=== PATIENT | female | born 1955 | race Caucasian/White ===

== ENCOUNTER → 2019-10-17 10:22 | Outpatient (CLI) | payer OTHER ==
--- NOTE | 2019-10-18 11:14 | EC ---
PATIENT:JAYJAY ARCHULETA DATE OF SERVICE: 10/17/19 SEX: F MEDICAL RECORD: [id number] DATE OF : 53 LOCATION:[facility] AGE OF PATIENT: 64 ADMISSION DATE: 10/17/19 REFERRING PHYSICIAN: INTERPRETING PHYSICIAN: RACHEL ART MD ECHOCARDIOGRAM REPORT ECHO CHARGES 4 ECHO COMPLETE Date: 10/17/19 CLINICAL DIAGNOSIS: CAD/MITRAL REGURG ECHOCARDIOGRAPHIC MEASUREMENTS (adult normal given) AC root (d.<3.7cm) 3.1 cm LV Septum d (<1.2 cm> 1.1 cm Valve Excursion 1.3 cm LV Septum (systole) 1.5 cm Left Atria (s.<4.0cm> 2.5 cm LVPW d(<1.2cm) 1.2 cm RV (d.<2.3cm) 2.6 cm LVPW (sytole) 1.6 cm LV diastole(<5.6CM) 4.5 cm MV E-F(>70mm/sec) cm LV systole 2.8 cm LVOT Diameter 1.9 cm MV exc.(>10mm) 1.1 cm Est.ejection fraction (50-75%) % DOPPLER: LVIT cm/sec A 58.0 cm/sec E 73.0 cm/sec LA cm/sec RVSP 15 mmHg LVOT 98 cm/sec AOP1/2T m/s Asc. Ao 105 cm/sec RVOT 94 cm/sec RA cm/sec PA 105 cm/sec AV Gradient Peak 4.43 mmHg AV Mean 2.29 mmHg AV Area 2.7 cm MV Gradient Peak 3.15 mmHg MV Mean 1.27 mmHg MV Area cm COMMENTS: Brim Presser: 2 KISHA SOLORZANO Computer Support Analyst: 3 Dr. Mares TAPE# PACS Pericardial Effusion N DATE OF SERVICE: Adequate 2D, color flow imaging, spectral Doppler, and M-Mode No LVH. LV internal dimension is normal. Wall motion is normal . EF greater than or equal to 55%. Aortic valve is tricuspid. No evidence of stenosis by Doppler interrogation. Left atrium is normal at 3.0 cm. Mitral valve shows no prolapse. Trace MR. Right-sided chambers are grossly normal. Mild TR. TRANSINT:[id number] Voice Confirmation ID: [id number] DOCUMENT ID: [id number] ECHOCARDIOGRAM REPORT [id number] JAYJAY ARCHULETA GREGORY A MD at 1114 CC: [id number] DICTATION DATE: 10/17/19 1302 FURNITURE ASSEMBLER: 10/18/19 0017 DEP CLI 10/17/19 [id number] [place] [address]
== END | disposition home or self-care (01) ==
LOC: D.HCCECHO 10:22
PROVIDERS: ATTEND Internal Medicine Interventional Cardiology
DX: I25.10 Atherosclerotic heart disease of native coronary artery without angina pectoris (principal)

== ENCOUNTER → 2019-12-04 08:59 | Outpatient (CLI) | payer OTHER | END | disposition home or self-care (01) | LOC: D.US 08:30 | PROVIDERS: ATTEND Internal Medicine Interventional Cardiology | DX: R09.89 Other specified symptoms and signs involving the circulatory and respiratory systems (principal) ==

== ENCOUNTER → 2020-07-17 09:00 | Outpatient (CLI) | payer MEDICARE | END | disposition home or self-care (01) | LOC: D.HCCARDIO 09:00 | PROVIDERS: ATTEND Internal Medicine Cardiovascular Disease | DX: I20.9 Angina pectoris, unspecified (principal) ==

== ENCOUNTER 2020-07-24 06:53 | Day surgery (SDC) | payer MEDICARE ==
[~2020-07-24] VITALS: Ht 157.5 cm; Wt 58.0 kg
--- NOTE | ~2020-07-24 | HEMODYNAMI ---
PATIENT:JAYJAY ARCHULETA MEDICAL RECORD: [id number] : 53 LOCATION:[facility] ADMISSION DATE: 07/24/20 Generatedon:19:06 Patient name: JAYJAY ARCHULETA Patient #: [id number] SSN: : 1955 Date of study: 07/24/2020 Page: Of Hemodynamic Procedure Report Patient Data Patient Demographics Procedure consent was obtained First Name: JAYJAY Gender: Female Last Name: GEREMIAS : 1955 [facility] Initial: JUDIE Age: 65 year(s) Patient #: [id number] Race: Unknown Additional ID: [id number] Contact details [address]: [address] [place] [address] State: [place] City: [place] Zip code: [address] Past Medical History Performed procedures and imaging results Date Procedure Procedure Results Comments Stress testing Positive->Intermediate with SPECT MPI risk Allergies Allergen Reaction Date Comments Reported Other allergy 07/24/2020 AMBIEN, BACTRIM, BENADRYL, CEPHALEXIN, DILAUDID, OXYCODONE Admission Admission Data Admission Date: 07/24/2020 Admission Time: 6:53 Arrival Date: 07/24/2020 Arrival Time: 0:00 Height (in.): 60 BSA: 1.53 (m2) Height (cm.): 152.4 BMI: 24.61 (kg/m2) Weight (lbs.): 126 Weight (kg.): 57.15 Lab Results Lab Result Date: 07/24/2020 Lab Result Time: 0:00 Biochemistry Name Units Result Min Max BUN mg/dl 14 --(--*-)-- 7 18 Creatinine mg/dl 1 --(--*-)-- 0.6 1.3 eGFR ml/min 59 *-(----)-- 90 120 NONAFRICAN CBC Name Units Result Min Max Hematocrit % 37.1 *-(----)-- 42 54 Hemoglobin g/dl 11.9 *-(----)-- 13.5 17.5 Procedure Procedure Types Cath Procedure Diagnostic Procedure [facility] w/Coronaries FFR/IVUS FFR Initial Sedation Charges Moderate Sedation 25-39 minutes PCI Procedure Coronary Stent Coronary Stent Initial Hemochron ACT Test Procedure Description Procedure Date Procedure Date: 07/24/2020 Procedure Start Time: 8:34 Procedure End Time: 9:03 Procedure Staff Name Function Pedro Pablo Horn MD Performing Physician Kirstin Martinez RT Monitor Liliana Martinez RT Scrub Gertrudis Moreno RN Nurse Procedure Data Cath Procedure Fluoroscopy Diagnostic fluoroscopy Total fluoroscopy Time: 4.8 time: 4.8 min min Diagnostic fluoroscopy Total fluoroscopy dose: 366 dose: 366 mGy mGy Contrast Material Contrast Material Type Amount (ml) Isovue 300 109 Entry Location Entry Primary Successful Side Size Upsize Upsize Entry Closure Succes sful Closure Location (Fr) 1 (Fr) 2 (Fr) Remarks Device Remarks Femoral Right 5 Fr 6 Fr Exoseal artery Short Estimated blood loss: 10 ml Diagnostic catheters Device Type Used For End Catheter Placement MULTIPACK JL 4.0 5Fr Procedure catheter MULTIPACK 3DRC 5Fr Procedure catheter MULTIPACK Pigtail 5 Fr Procedure catheter MULTIPACK JL 4.0 5Fr Procedure catheter Procedure Complications No complications Procedure Medications Medication Administration Route Dosage Oxygen etCO2 Nasal cannula 2 l/min Lidocaine 2% added to field 20 Heparin Flush Bag added to field 2 bags (1000units/500ml NS) 0.9% NaCl I.V. 100 ml/hr Versed I.V. 1 mg Fentanyl I.V. 50 mcg Versed I.V. 1 mg Fentanyl I.V. 50 mcg Heparin Bolus I.V. 5000 units Integrilin (Bolus I.V. 5 ml 2mg/ml) Versed I.V. 1 mg Fentanyl I.V. 50 mcg Versed I.V. 1 mg Fentanyl I.V. 50 mcg Plavix P.O. 600 mg Hemodynamics Rest BSA: 1.53 (m2) HGB: 11.9 (g/dl) O2 Consumption: Estimated: 150.63 (ml/min) O2 Co nsumption indexed: Estimated:98.45 (ml/min/m) Heart Rate: 84 (bpm) Pressure Samples Time Site Value (mmHg) Purpose Heart Use Rate(bpm) 8:39 LV 100/10,20 Snapshot 87 8:39 LV 94/13,17 Snapshot 87 Gradients Valve Time Site Site Mean SEP/DFP Peak To Heart Use 1 2 (mmHg) (sec/min) Peak Rate (mmHg) (bpm) Aortic 8:39 LV AO 91 Snapshots Pre Cath Intra NCS Post Cath Vital Signs Time Heart Resp SPO2 etCO2 NIBP Rhythm Pain Sedation Rate (ipm) (%) (mmHg) (mmHg) Status Level (bpm) 8:21:06 83 18 98 0 106/61(90) NSR 0 (11) 10(A) , No pain 8:25:14 82 14 95 0 100/61(78) NSR 0 (11) 10(A) , No pain 8:29:20 82 14 94 15.1 103/60(79) NSR 0 (11) 10(A) , No pain 8:33:25 84 11 96 30.2 107/63(86) NSR 0 (11) 10(A) , No pain 8:37:33 86 14 93 0 109/62(85) NSR 0 (11) 9(A) , No pain 8:41:37 87 12 96 45.2 105/71(94) NSR 0 (11) 9(A) , No pain 8:45:43 89 12 97 46 102/62(81) NSR 0 (11) 10(A) , No pain 8:49:49 88 7 98 37.6 105/59(79) NSR 0 (11) 9(A) , No pain 8:53:54 89 8 97 42.2 106/64(87) NSR 0 (11) 9(A) , No pain 8:58:08 91 9 98 42.2 116/62(96) NSR 0 (11) 10(A) , No pain 9:02:18 89 11 98 38.4 102/66(88) NSR 0 (11) 10(A) , No pain Medications Time Medication Route Dose Verified Delivered Reason Notes Effectiveness by by 8:21:13 Oxygen etCO2 2 Pedro Pablo Gertrudis used for Nasal l/min [facility] composite science teacher cannula 8:32:21 Lidocaine 2% added 20ml Pedro Pablo Chamorro for local to vial [facility] anesthetic field MD VIEIRA 8:32:27 Heparin Flush added 2 Pedro Pablo Pedro Pablo used for Bag to bags [facility] procedure (1000units/500ml field MD VIEIRA NS) 8:32:37 0.9% NaCl I.V. 100 Pedro Pablo Buffie Per physician ml/hr [facility] Marvin Moreno RN, MD 8:32:47 Versed I.V. 1 mg Pedro Pablo Buffie for sedation [facility] Marvin Moreno RN, MD 8:32:53 Fentanyl I.V. 50 Pedro Pablo Buffie for sedation mcg St Marvin Moreno RN, MD 8:35:03 Versed I.V. 1 mg Pedro Pablo Buffie for sedation St Marvin Moreno RN, MD 8:35:06 Fentanyl I.V. 50 Pedro Pablo Buffie for sedation [facility] [place] [facility] Marvin Moreno RN, MD 8:42:35 Heparin Bolus I.V. 5000 Pedro Pablo Buffie for verifi ed units St Marvin Moreno RN anticoagulation with dr MD thomason 8:44:49 Integrilin I.V. 5 ml Pedro Pablo Buffie for Wasted 5 (Bolus 2mg/ml) St Marvin Moreno RN antiplatelet ml of MD therapy vial 8:48:08 Versed I.V. 1 mg Pedro Pablo Buffie for sedation [facility] Marvin Moreno RN, MD 8:48:11 Fentanyl I.V. 50 Pedro Pablo Buffie for sedation [facility] [place] [facility] Marvin Moreno RN, MD 8:55:59 Versed I.V. 1 mg Pedro Pablo Buffie for sedation St Marvin Moreno RN, MD 8:56:03 Fentanyl I.V. 50 Pedro Pablo Buffie for sedation mcg St Marvin Moreno RN, MD 9:03:29 Plavix P.O. 600 Pedro Pablo Fortuneie for mg St Marvin Moreno RN antiplatelet MD therapy Procedure Log Time Note 7:55:18 Informed consent obtained and on chart 7:56:02 Procedure Status Elective Heart Cath (OP). 7:56:07 Plan of Care:Hemodynamics will remain stable., Cardiac rhythm will remain stable., Comfort level will be maintained., Respiratory function will remain adequate., Patient/ family verbilizes understanding of procedure., Procedure tolerated without complication., Recovers from procedure without complications.. 7:56:09 Time tracking: Regular hours (M-F 7:00 - 5:00) 7:56:18 H&P Date Dictated: 07/09/2020 Within 30 days and on chart., H&P Addendum completed by physician on day of procedure. (MUST COMPLETE FOR ALL OUTPATIENTS). 7:56:45 Patient allergic to Other allergyAMBIEN, BACTRIM, BENADRYL, CEPHALEXIN, DILAUDID, OXYCODONE 7:57:35 Patient Height : 60 inches 7:57:39 Patient Weight : 126 lbs 7:57:43 Arrival Date: 07/24/2020 12:00:00 AM 8:03:38 Stress Test: yes; abnormal APICAL 8:09:27 Kirstin Martinez RT(R) sent for patient. Start room use. 8:19:52 Patient received from Pre/Post Procedure Room to CCL 1 Alert and oriented. Tansferred to table in Supine position. 8:19:53 Warm blankets applied, and brenton hugger turned on for patient comfort. 8:19:54 Correct patient and procedure confirmed by team. 8:19:54 ECG and BP/O2 sat monitors applied to patient. 8:19:59 Vital chart was started 8:20:17 Baseline sample Acquired. 8:20:35 Rhythm: sinus rhythm 8:20:36 Full Disclosure recording started 8:20:37 Pre-procedure instructions explained to patient. 8:20:37 Pre-op teaching completed and patient verbalized understanding. 8:20:40 Family unavailable. 8:20:41 Patient NPO since Midnight. 8:20:43 Is the patient allergic to Iodine/contrast media? No. 8:20:43 Is patient on blood thinner?No 8:20:51 Patient diabetic? No. 8:20:53 Previous problem with sedation/anesthesia? No ? 8:20:55 Snore? Yes 8:20:57 Sleep apnea? No 8:20:59 Deviated septum? No 8:20:59 Opens mouth fully? Yes 8:21:01 Sticks out tongue? Yes 8:21:05 Airway obstruction? No ? 8:21:07 Dentures? No ? 8:21:10 Pre procedure: right dorsailis pedis pulse 1+ Palpable, but thready & weak; easily obliterated 8:21:12 Patient pain scale 0/10 ?. 8:21:13 Oxygen 2 l/min etCO2 Nasal cannula was administered by Gertrudis Moreno RN; used for procedure; Verbal order read back and verified. 8:21:16 IV patent on arrival in left hand with 0.9% NaCl at [facility]. 8:22:13 Right groin area was prepped with chlora-prep and draped in sterile fashion 8:22:14 Alarms reviewed by R. N. 8:22:14 Sharps counted by scrub and verified by R.N. 8:22:16 Use device set Femoral Dx 8:22:17 ACIST Syringe (66575) opened to sterile field. 8:22:18 Bag Decanter (2002S) opened to sterile field. 8:22:19 ACIST Hand Control (31486) opened to sterile field. 8:22:19 ACIST Manifold (97974) opened to sterile field. 8:22:20 Tegaderm 4 x 4 (1626W) opened to sterile field. 8:22:21 Medline Cath Pack ([id number]) opened to sterile field. 8:22:22 DIAGNOSTIC Multipack 5Fr catheter set ([id number]) opened to sterile field. 8:22:23 SHEATH 5FR Lyman ([id number]) opened to sterile field. 8:22:23 EMERALD Guide Wire (970-128) opened to sterile field. 8:29:27 Lab Result : BUN 14 mg/dl 8:29:27 Lab Result : eGFR NONAFRICAN 59 ml/min 8:29:27 Lab Result : Creatinine 1 mg/dl 8:29:27 Lab Result : Hemoglobin 11.9 g/dl 8:29:27 Lab Result : Hematocrit 37.1 % 8:29:52 Lab results completed and on chart. 8:30:19 --------ALL STOP TIME OUT------ 8:30:19 Final Timeout: patient, procedure, and site verified with staff and physician. All members of the team are in agreement. 8:30:20 Right groin site verified by team. 8:30:23 Fire Safety Assessment: A--An alcohol-based skin anteseptic being used preoperatively., C--Open oxygen or nitrous oxide is being used., D--An ESU, laser, or fiber-optic light is being used. 8:30:25 Physical assessment completed. ASA score P 2 - A patient with mild systemic disease as per Pedro Pablo Horn MD. 8:30:30 3a) 45-59 Moderately reduced kidney function. 8:30:34 Maximum allowable contrast dose (3.7 X eGFR X 0.75)164 ml. 8:30:37 Sedation plan: IV Moderate Sedation Medication:Versed, Fentanyl 8:32:21 Lidocaine 2% 20ml vial added to field was administered by Pedro Pablo Horn MD; for local anesthetic; Verbal order read back and verified. 8:32:27 Heparin Flush Bag (1000units/500ml NS) 2 bags added to field was administered by Pedro Pablo Horn MD; used for procedure; Verbal order read back and verified. 8:32:37 0.9% NaCl 100 ml/hr I.V. was administered by Gertrudis Moreno RN; Per physician; Verbal order read back and verified. 8:32:47 Versed 1 mg I.V. was administered by Gertrudis Moreno RN; for sedation; Verbal order read back and verified. 8:32:53 Fentanyl 50 mcg I.V. was administered by Gertrudis Moreno RN; for sedation; Verbal order read back and verified. 8:34:07 Procedure started. 8:34:09 Zero performed for pressure channel P1 8:34:15 Local anesthetic to right femoral artery with Lidocaine 2% by Pedro Pablo Horn MD.INITIAL ACCESS ONLY 8:35:03 Versed 1 mg I.V. was administered by Gertrudis Moreno RN; for sedation; Verbal order read back and verified. 8:35:06 Fentanyl 50 mcg I.V. was administered by Gertrudis Moreno RN; for sedation; Verbal order read back and verified. 8:35:11 A 5 Fr sheath was inserted into the Right Femoral artery 8:35:16 A MULTIPACK JL 4.0 5Fr catheter was advanced over the wire and used for Procedure. 8:36:54 LCA angiography performed. 8:36:55 Catheter removed. 8:37:03 A MULTIPACK 3DRC 5Fr catheter was advanced over the wire and used for Procedure. 8:38:07 RCA angiography performed. 8:38:08 Catheter removed. 8:38:26 A MULTIPACK Pigtail 5 Fr catheter was advanced over the wire and used for Procedure. 8:38:32 LV gram done using ROJAS 8:38:35 Injector settings: Ml/sec: 10, Volume: 20, 8:39:31 LV hemodynamics recorded. 8:39:39 EF : 55 % 8:39:41 Catheter removed. 8:39:41 Proceeding to intervention. 8:39:51 SHEATH 6FR Lyman (BDQ519) opened to sterile field. 8:39:56 INFLATOR Merit BasixCompak (QB3103) opened to sterile field. 8:40:19 Sheath upsized to a 6 Fr Short. 8:40:30 GUIDE 6FR HS I SH catheter ([id number]) opened to sterile field. 8:41:07 Asahi Minamo 300cm wire opened to sterile field. 8:41:29 Guajardo PressureWire X ([id number]) opened to sterile field. 8:42:10 A MULTIPACK JL 4.0 5Fr catheter was advanced over the wire and used for Procedure. 8:42:35 Heparin Bolus 5000 units I.V. was administered by Gertrudis Moreno RN; for anticoagulation; verified with dr thomason Verbal order read back and verified. 8:43:17 Pressure wire advanced. 8:44:49 Integrilin (Bolus 2mg/ml) 5 ml I.V. was administered by Gertrudis Moreno RN; for antiplatelet therapy; Wasted 5 ml of vial Verbal order read back and verified. 8:46:38 Wire advanced across lesion. 8:47:48 Circ lesion measured at 1.04 with IFR 8:47:56 Wire removed. 8:48:03 JL REMOVED 8:48:08 Versed 1 mg I.V. was administered by Gertrudis Moreno RN; for sedation; Verbal order read back and verified. 8:48:11 Fentanyl 50 mcg I.V. was administered by Gertrudis Moreno RN; for sedation; Verbal order read back and verified. 8:48:16 Pre PCI Site: [place] RCA has 80% stenosis. 8:48:21 6 Fr HS 1 SH guide catheter was inserted over the wire 8:49:24 MINAMO 300 wire advanced. 8:51:02 Wire advanced across lesion. 8:54:25 Place stent Inflation Number: 1 A INTEGRITY RX 3.0 x 09 stent ([id number]) was prepped and advanced across the Dist RCA . The stent was deployed at 14 DARRYL for 0:20 (min:sec) . 8:54:35 Stent catheter was removed intact over wire. 8:55:59 Versed 1 mg I.V. was administered by Gertrudis Moreno RN; for sedation; Verbal order read back and verified. 8:56:03 Fentanyl 50 mcg I.V. was administered by Gertrudis Moreno RN; for sedation; Verbal order read back and verified. 8:56:45 Place stent Inflation Number: 1 A INTEGRITY RX 3.0 x 15 stent ([id number]) was prepped and advanced across the Prox RCA . The stent was deployed at 14 DARRYL for 0:20 (min:sec) . 8:57:21 Stent catheter was removed intact over wire. 8:57:22 Wire removed. 8:57:22 Guide catheter removed. 8:57:57 EXOSEAL 5Fr (EX500) opened to sterile field. 8:58:08 Sheath removed intact; hemostasis achieved with Exoseal to the Right Femoral artery. 8:58:12 Procedure ended.(Physican Out) 8:58:31 Contrast amount:Isovue 300 109ml. 8:58:38 Fluoroscopy time 04.80 minutes. 8:58:49 Fluoroscopy dose: 366 mGy 8:58:49 Flurop Dose total: 366 8:58:54 Dose Area Product 22464 mGy/cm. 8:59:38 Maximum allowable dose exceeded? No. 8:59:39 Sharps counted by scrub and verified by R.N. 8:59:42 Post-op/insertion site Right Femoral artery dressed using a 4 x 4 and Tegaderm. 8:59:44 Post-procedure physical assessment completed. ASA score P 2 - A patient with mild systemic disease as per Pedro Pablo Horn MD. 8:59:47 Post procedure rhythm: sinus rhythm 8:59:49 Estimated blood loss: 10 ml 8:59:51 Post procedure instruction explained to patient.Patient verbalizes understanding. 8:59:51 Patient needs reinforcement of post procedure teaching. 9:02:32 Procedure type changed to Cath procedure, Diagnostic procedure, C, [facility] w/Coronaries, FFR/IVUS, FFR Initial, Sedation Charges, Moderate Sedation 25-39 minutes, PCI procedure, Coronary Stent, Coronary Stent Initial, Hemochron ACT Test 9:02:56 Procedure and supply charges have been captured, reviewed, submitted and are correct. 9:02:59 Procedure Complication : No complications 9:03:01 Vital chart was stopped 9:03:03 [facility] Findings: MVD- PCI performed (see procedure note) 9:03:05 See physician's report for complete and final results. 9:03:05 Operative report dictated upon procedure completion. 9:03:08 Report given to Pre/Post Procedure Room. 9:03:11 Patient transfered to Pre/Post Procedure Room with Bed. 9:03:14 Procedure ended. 9:03:14 Full Disclosure recording stopped 9:03:29 Plavix 600 mg P.O. was administered by Gertrudis Moreno RN; for antiplatelet therapy; Verbal order read back and verified. 9:03:41 ACT drawn and resulted at out of range high seconds. (normal therapeutic range 180-240 seconds). 9:04:01 ACC-PCI Only Patient was given prescriptions, or instructed by Pedro Pablo Horn MD to start/continue the following medications upon discharge: Plavix 9:04:03 End room use (Document Last) 9:05:14 End room use (Document Last) 9:06:28 End room use (Document Last) Intervention Summary Intervention Notes Time ActionType Lesion and Equipment Action# Pressure Duration Attributes Used 8:54:25 Place stent Dist RCA INTEGRITY RX 1 14 00:20 3.0 x 09 stent ([id number]) 8:56:45 Place stent Prox RCA INTEGRITY RX 1 14 00:20 3.0 x 15 stent ([id number]) Device Usage Item Name Manufacture Quantity Catalog Hospital Part Current Mini [facility] Lot# / Number Charge Number Stock Stock Serial# Code ACIST Acist 1 22521 453291 202994 962497 20 Syringe Medical (86449) Systems Inc Bag Decanter Microtek 1 2001S 091526 39283 383070 5 (2001S) Medical Inc. ACIST Hand Acist 1 46760 288132 828208 032805 5 Control Medical (20847) Systems Inc ACIST Acist 1 79699 102888 852203 021281 5 Manifold Medical (07109) Systems Inc Tegaderm 4 x 3M 1 1626W 541830 850714 438941 5 4 (1626W) Medline Cath Medline 1 [id number] 509838 51936 641884 5 Pack ([id number]) DIAGNOSTIC Cardinal 1 HR4456 827273 47073 295715 30 Multipack Health 5Fr catheter set (JB4951) SHEATH 5FR Terumo 1 OXU270 593842 971313 859024 5 Lyman (KRS479) EMERALD Cardinal 1 502-004 252099 578877 941012 5 Guide Wire Health (890-624) MULTIPACK JL Cardinal 1 641072 5 4.0 5Fr Health catheter MULTIPACK Cardinal 1 885803 5 3DRC 5Fr Health catheter MULTIPACK Cardinal 1 602060 5 Pigtail 5 Fr Health catheter SHEATH 6FR Terumo 1 QJB421 790746 931564 185698 40 Lyman (XZA230) INFLATOR Merit 1 EM3600 699048 160382 472429 15 [facility] Medical BasixCompak (FU2578) GUIDE 6FR HS Medtronic 1 [id number] 774405 40104 272285 1 I SH catheter ([id number]) [facility] Intecc 1 [id number] 948809 9920763 837972 0 300cm wire Guajardo Guajardo 1 Q05020 295996 448176698 97896 5 PressureWire Vascular X (P78579) INTEGRITY RX Medtronic 1 [id number] 246250 074439 857456 5 [id number] 3.0 x 09 stent ([id number]) INTEGRITY RX Medtronic 1 [id number] 553074 733920 851028 5 [id number] 3.0 x 15 stent ([id number]) EXOSEAL 5Fr Cardinal 1 EX500 791689 962082 287932 10 (EX500) Health Signature Audit [place] Stage Time Signature Unsigned Intra-Procedure 07/24/2020 Kirtsin Martinez 9:05:14 AM RT(R) Intra-Procedure 07/24/2020 eGrtrudis Moreno RN 9:06:28 AM Intra-Procedure 07/24/2020 Pedro Pablo Reddy 9:06:51 AM Marvin VIEIRA [place] [id number] [place] [id number]
[2020-07-24] MEDS ORDERED: HYDROCODONE-AC1 EAC2 PO (07:04)
[2020-07-24] MEDS ORDERED: SYNTHROID50 MCG PO (07:05)
[2020-07-24] MEDS ORDERED: TEMAZEPAM30 MG PO (07:07)
[2020-07-24] MEDS ORDERED: XANAX1 MG PO (07:12)
[2020-07-24] MEDS ORDERED: OMEPRAZOLE40 MG PO (07:12)
[2020-07-24] MEDS ORDERED: CO Q-10200 MG PO (07:12)
[2020-07-24] MEDS ORDERED: BAYER CHEWABLE81 MG PO (07:13)
[2020-07-24] MEDS ORDERED: COZAAR50 MG PO (07:13)
[2020-07-24] MEDS ORDERED: SEROQUEL400 MG PO (07:13)
[2020-07-24] MEDS ORDERED: ZETIA10 MG PO (07:13)
[2020-07-24] MEDS ORDERED: VITAMIN D-32000 UNIT PO (07:14)
[2020-07-24] MEDS ORDERED: FOLIC ACID1 MG PO (07:15)
[2020-07-24] MEDS ORDERED: OLUX-E 0.05% FO50 GM TOPICAL (07:15)
[2020-07-24] MEDS ORDERED: STOOL SOFTENER100 M1 PO (07:16)
[2020-07-24] MEDS ORDERED: IBUPROFEN800 MG PO (07:16)
[2020-07-24] MEDS ORDERED: SYMPROIC (07:17)
[2020-07-24] MEDS ORDERED: LEVOCETIRIZINE (07:18)
[2020-07-24 07:37] VITALS: BP 126/69; Ht 157.5 cm; Wt 58.0 kg
[2020-07-24 08:19] LABS: BASOPHILS 0.3 % (0-2); EOSINOPHILS 3.9 % (0-7); HEMATOCRIT 37.1 % (36.0-48.0); HEMOGLOBIN 11.9 g/dL (12-16); IMMATURE GRANULOCYTES 0.1 % (0-5); LYMPHOCYTE ABS# 0.98 10x3/uL (1.18-3.74); LYMPHOCYTES 13.8 % (15-50); MCH 27.5 pg (26.0-34.0); MCHC 32.1 g/dL (31.0-37.0); MCV 85.9 fL (80.0-100.0); MEAN PLATELET VOLUME 10.3 fL (7.4-10.4); MONOCYTES 9.3 % (2-11); NEUTROPHIL ABS# 5.16 10x3/uL (1.56-6.13); NEUTROPHILS 72.6 % (40-80); PLATELET COUNT 194 10x3/uL (130-400); RBC 4.32 10x6/uL (4.00-5.40); RDW 16.1 % (11.5-14.5); WBC 7.1 10x3/uL (4.8-10.8)
[2020-07-24 08:22] LABS: ANION GAP 9.7 mmol/L (8-16); CALCIUM 9.1 mg/dL (8.5-10.1); CARBON DIOXIDE 29.8 mmol/L (21.0-32.0); CHOL - HDL RATIO 1.7 ratio (2.3-4.1); LDL-HDL RATIO 0.4 ratio (1.5-3.5); POTASSIUM - SERUM 3.5 mmol/L (3.5-5.1)
--- NOTE | 2020-07-24 09:20 | NUR ---
PT RECEIVED VIA STRETCHER BACK TO ROOM 8 FROM APPLICATIONS SUPPORT SPECIALIST FOR RECOVERY. PT AWAKE BUT DROWSY, DENIES PAIN OR DISCOMFORT AT THIS TIME. IV PATENT INFUSING VIA ORDERS TO L ARM. PT PLACED ON CARDIAC MONITORS AND O2 VIA NC AT 2L/NC. SEE V/S SHEET. R GROIN W 6FR EXOCELE, LG TEGADERM DRESSING CDI, NO S/S HEMATOMA OR BLEEDING NOTED. LEG PINK AND WARM, PEDAL PULSES PALPABLE. PT INSTRUCTED TO KEEP HEAD FLAT ON PILLOW AND LEG STRAIGHT, SHE VERBALIZED UNDERSTANDING. CALL LIGHT IN REACH
[2020-07-24] MEDS ORDERED: PLAVIX75 MG PO (09:28)
--- NOTE | 2020-07-24 09:45 | NUR ---
PT RESTING COMFORTABLY, VSS AT PRESENT. R GROIN SOFT, DRESSING CDI NO S/S HEMATOMA OR BLEEDING NOTED. CALL LIGHT IN REACH
[2020-07-24] MEDS ORDERED: PRAVACHOL40 MG PO (10:07)
--- NOTE | 2020-07-24 10:30 | NUR ---
PT RESTING QUIETLY VISITING W . PT TOLERATING PO FLUIDS. R GROIN SOFT, DRESSING REMAINS CDI NO S/S HEMATOMA OR BLEEDING NOTED. VSS AT PRESENT. CALL LIGHT IN REACH.
--- NOTE | 2020-07-24 11:00 | NUR ---
R GROIN SOFT, DRESSING REMAINS CDI NO S/S HEMATOMA OR BLEEDING NOTED. VSS AT PRESENT. CALL LIGHT IN REACH, AT BS.
--- NOTE | 2020-07-24 11:30 | NUR ---
R GROIN SOFT, NO S/S HEMATOMA NOTED. CALL LIGHT IN REACH, AT BS
--- NOTE | 2020-07-24 12:00 | NUR ---
R GROIN SOFT, NO S/S HEMATOMA OR BLEEDING NOTED. HOB ELEVATED. SANDWICH AND COFFEE SERVED. VSS AT PRESENT. CALL LIGHT IN REACH, AT BS.
--- NOTE | 2020-07-24 12:30 | NUR ---
R GROIN SOFT, DRESSING CDI NO S/S HEMATOMA OR BLEEDING NOTED. PT TOLERATING PO FLUIDS AND SOLIDS. NO C/O OR NEEDS AT THIS TIME. CALL LIGHT IN REACH
--- NOTE | 2020-07-24 12:40 | NUR ---
DISCHARGE INSTRUCTIONS REVIEWED W PT, EXPLAINED IMPORTANCE OF GETTING PLAVIX FILLED AND SHE VERBALIZED UNDERSTANDING. IV REMOVED W CATH INTACT, MONITORS REMOVED. PT UP TO DRESS FOR DISCHARGE
--- NOTE | 2020-07-24 13:03 | NUR ---
PT DISCHARGED VIA WC, STOPPED BY BR PT IS VOIDING W/O DIFFICULIYT. PT HAD ALL BELONGINGS AND DISCARGE PAPERWORK
--- NOTE | 2020-07-26 09:41 | OP ---
PATIENT NAME: JAYJAY ARCHULETA MEDICAL RECORD: [id number] :53 LOCATION:D[facility] ADMISSION DATE: SURGEON: RACHEL ART MD DATE OF OPERATION: 07/24/2020 PROCEDURES: Left heart catheterization, selective coronary angiography, plus iFR to circumflex, plus stenting to right, right femoral artery approach. CATHETERS: A 5-[place] sheath, 5/4 left and right Mary, 5/4 pig. The procedure was well tolerated. The patient returned to walls, sheath removed, adequate hemostasis was obtained. FINDINGS: Left ventriculography in 30-degree ROJAS view: Normal wall motion and normal systolic function. CORONARY ANATOMY: LEFT MAIN: Left main free of disease. LAD: Area of previous stenting is widely patent. No progression of [place] disease. No evidence of restenosis. CIRCUMFLEX: Has questionable stenosis prior to the previously placed stent; however, this was normal via iFR wire. RIGHT CORONARY ARTERY: Right coronary artery has 2 sequential stenoses, one is proximal third, one right before the take off the PD, both 80%, correlate nicely with nuclear study. PLAN: Intervention momentarily. DESCRIPTION OF PROCEDURE: Hockeystick guided catheter provided excellent guide catheter support. We used [place] wire across both lesions. Stent deployed distally was a 3.0 x 9 Integrity nondrug-eluting stent and proximally 3.0 x 15 Integrity nondrug eluting stent up to 14 atmospheres for 45 seconds. Final angiography shows excellent resolution, 2 sequential stenoses, no significant residual. HANK flow 3 throughout the procedure. Heparin and Integrilin were used during the case. Sheath closed with ExoSeal device. The patient will need full 1 month Plavix before total hip arthroplasty. TRANSINT:[id number] Voice Confirmation ID: [id number] DOCUMENT ID: [id number] RACHEL ART MD at 0941 CC: [id number] DICTATION DATE: 07/24/20906 [facility] MOSS BLEACHER: 07/24/20 1839 [facility] [place] 07/24/20 [facility] [address] [place] [address]
== END 2020-07-24 13:00 | disposition home or self-care (01) ==
LOC: D.CATH 06:53
PROVIDERS: ATTEND Internal Medicine Interventional Cardiology
DX: I25.10 Atherosclerotic heart disease of native coronary artery without angina pectoris (principal); I10 Essential (primary) hypertension; E78.5 Hyperlipidemia, unspecified